=== PATIENT | female | born 1950 | race African-American/Black ===

== ENCOUNTER 2024-05-31 20:24 | Inpatient (IN) | payer BC, MEDICARE ==
[~2024-05-31] VITALS: Ht 170.2 cm; Wt 90.7 kg
[~2024-05-31 20:24] MED LIST: AMLO10TA80 PO; AMLO5TAB4 PO; HYDR25TA78 PO; LOSA-415 PO; TOPUD PO; WALK1EAC55 MC
[2024-05-31 21:55] LABS: HEMATOCRIT. 47.1 % (36.0-48.0); HEMOGLOBIN. 16.1 g/dL (12.0-16.0); MEAN CORPUSCULAR HEMOGLOBIN 32.8 pg (28.0-32.0); MEAN CORPUSCULAR HGB CONC 34.2 g/dL (31.0-37.0); MEAN CORPUSCULAR VOLUME 95.9 fL (81.0-99.0); MEAN PLATELET VOLUME 9.7 fl (7.4-10.4); PLATELET 86 x1000/uL (130-400); RED BLOOD CELL COUNT 4.91 mill/uL (4.2-5.4); WHITE BLOOD COUNT 10.4 x1000/uL (4.5-11.0)
[2024-05-31 21:56] LABS: DIFFERENTIAL COMMENT 1
[2024-05-31 22:00] LABS: CHLORIDE 108 mEq/L (98-107); SODIUM 140 mEq/L (136-145)
[2024-05-31 22:01] LABS: CALCIUM 8.9 mg/dL (8.7-10.4); CARBON DIOXIDE 24 mEq/L (21-32)
[2024-05-31 22:06] LABS: CREATININE 0.9 mg/dL (0.6-1.0); GLUCOSE 220 mg/dL (70-105); UREA NITROGEN BLOOD 9 mg/dL (9-23)
[2024-05-31 22:18] LABS: PLATELET ESTIMATE DECREASED
[2024-05-31 22:48] LABS: LACTIC ACID 3.6 mmol/L (0.4-2.0)
[2024-05-31 23:40] LABS: CLARITY URINE CLOUDY (CLEAR); COLOR URINE DARK YELLOW (YELLOW); GLUCOSE URINE TRACE (NEGATIVE); KETONES URINE TRACE (NEGATIVE); LEUKOCYTE ESTERASE URINE TRACE (NEGATIVE); NITRITE URINE POSITIVE (NEGATIVE); OCCULT BLOOD URINE NEGATIVE (NEGATIVE); PROTEIN URINE 1+ (NEGATIVE); SPECIFIC GRAVITY URINE 1.026 (1.005-1.030); UROBILINOGEN URINE >8.0 E.U./dL (0.2-1.0)
[2024-05-31] MEDS ORDERED: CEPH500C2 MT (23:46)
[2024-06-01] MEDS: CEFTRIAXONE 1GM/50ML 50 ML IV ONE (00:45)
[2024-06-01 05:09] LABS: SQUAMOUS EPITHELIAL CELL URINE 2+ /lpf (RARE/1+)
[2024-06-01 05:11] LABS: RBC URINE 0-2 /hpf (0-2); WBC URINE 0-2 /hpf (0-2)
[2024-06-01 05:12] LABS: BACTERIA URINE 1+
[2024-06-01] MEDS: LACTATED RINGERS 1,000 ML IV SCH (08:30)
[2024-06-01] MEDS ORDERED: GUAIFENESIN 200MG/10ML SUGAR FREE UDC PO PRN (08:45)
[2024-06-01] MEDS ORDERED: DOCUSATE SODIUM 100MG CAPSULE PO PRN (08:45)
[2024-06-01] MEDS ORDERED: NITROGLYCERIN 0.4MG TABLET SL SL PRN (08:45)
[2024-06-01] MEDS ORDERED: MAGNESIUM/ALUMINUM HYDROXIDE/SIMETHICONE 30ML UDC PO PRN (08:45)
[2024-06-01] MEDS ORDERED: KETOROLAC 15MG/ML VIAL IV PRN (08:45)
[2024-06-01] MEDS ORDERED: ACETAMINOPHEN 325MG TABLET PO PRN (08:45)
[2024-06-01] MEDS ORDERED: ZOLPIDEM TARTRATE 5MG TABLET PO PRN (08:45)
[2024-06-01] MEDS ORDERED: ONDANSETRON HCL 4MG/2ML INJ IV PRN (08:45)
[2024-06-01] MEDS: SODIUM CHLORIDE 0.9% 1000ML BAG (SEPSIS BOLUS) IV ONE (09:09)
[2024-06-01] MEDS: ASPIRIN 81MG EC TABLET PO SCH (09:23)
[2024-06-01] MEDS: FAMOTIDINE 20MG TABLET PO SCH (09:23)
[2024-06-01] MEDS: ASCORBIC ACID 500 MG TABLET PO SCH (09:24)
[2024-06-01] MEDS: ENOXAPARIN 40MG/0.4ML SYR SUBCUT SCH (09:24)
[2024-06-01] MEDS: ZINC SULFATE 220 MG ( 50 ) CAPSULE PO SCH (09:24)
[2024-06-01] MEDS: PIPERACILLIN/TAZO 3.375G/50ML 50 ML IV SCH (10:00)
[2024-06-01] MEDS: VANCOMYCIN 1.25GM PMX (XELLIA) 250 ML IV SCH (10:31)
[2024-06-01 13:01] LABS: IRON 36 ug/dL (50-170); TRIGLYCERIDE 83 mg/dL (0-150)
[2024-06-01 13:02] LABS: LDL CHOLESTEROL 72 mg/dL (5-100)
[2024-06-01 13:04] LABS: CHOLESTEROL 132 mg/dL (<200); HDL CHOLESTEROL 33 mg/dL (>65); TOTAL IRON BINDING CAPACITY 206 ug/dl (250-425)
[2024-06-01 13:06] LABS: THYROID STIMULATING HORMONE 0.51 uIU/mL (0.55-4.78)
[2024-06-01 13:07] LABS: T4 FREE 1.11 ng/dL (0.89-1.76)
[2024-06-01 14:32] LABS: FOLIC ACID (FOLATE) SERUM 9.88 ng/mL (>5.38); VITAMIN B12 SERUM 567 pg/mL (211-911)
[2024-06-01 15:06] VITALS: BP 124/98; PULSE 71; RESP 17; TEMP 36.72516; O2SAT 98
[2024-06-01 15:26] VITALS: BP 124/98; PULSE 71; RESP 17; TEMP 36.7516
[2024-06-01 16:21] LABS: CREATINE KINASE MB FRACTION 2.3 ng/mL (0.5-3.6)
[2024-06-01 16:22] LABS: TROPONIN I HIGH SENSITIVITY 9 ng/L (3.0-34)
[2024-06-01 16:23] LABS: CREATINE KINASE 99 IU/L (34-145)
[2024-06-01 17:07] LABS: HEPATITIS B SURFACE ANTIGEN NEGATIVE (Negative)
[2024-06-01 17:28] LABS: HEPATITIS C AB REACTIVE (Pos) (Negative)
[2024-06-01 20:00] VITALS: BP 168/72; PULSE 100; RESP 16; TEMP 36.83628; O2SAT 96
[2024-06-01] MEDS: CLONIDINE 0.1MG TABLET PO PRN (22:24)
[2024-06-02] VITALS: BP 112/49; PULSE 69; RESP 15; TEMP 36.78072; O2SAT 97
[2024-06-02 00:10] LABS: CREATINE KINASE MB FRACTION 1.8 ng/mL (0.5-3.6)
[2024-06-02 04:00] VITALS: BP 135/71; PULSE 88; RESP 12; TEMP 36.6696; O2SAT 97
[2024-06-02 06:52] LABS: EOSINOPHILS % 2.5 % (0.0-5.0); HEMATOCRIT. 39.3 % (36.0-48.0); LYMPHOCYTES % 27.5 % (20.0-50.0); MEAN CORPUSCULAR VOLUME 96.8 fL (81.0-99.0); MEAN PLATELET VOLUME 10.3 fl (7.4-10.4); MONOCYTES % 5.9 % (2.0-8.0); NEUTROPHILS % 63.1 % (40.0-76.0); PLATELET 67 x1000/uL (130-400); RED BLOOD CELL COUNT 4.06 mill/uL (4.2-5.4); RED CELL DISTRIBUTION WIDTH 13.7 % (11.6-14.6); WHITE BLOOD COUNT 6.7 x1000/uL (4.5-11.0)
[2024-06-02 06:59] LABS: CHLORIDE 113 mEq/L (98-107); SODIUM 142 mEq/L (136-145)
[2024-06-02 07:02] LABS: CALCIUM 8.5 mg/dL (8.7-10.4); CARBON DIOXIDE 25 mEq/L (21-32)
[2024-06-02 07:07] LABS: CREATININE 0.8 mg/dL (0.6-1.0); GLUCOSE 155 mg/dL (70-105)
[2024-06-02 07:08] LABS: ALANINE AMINOTRANSFERASE 96 IU/L (10-49); UREA NITROGEN BLOOD 16 mg/dL (9-23)
[2024-06-02 07:09] LABS: ALBUMIN 2.8 g/dL (3.2-4.8); ASPARTATE AMINOTRANSFERASE 70 IU/L (<34)
[2024-06-02 07:10] LABS: BILIRUBIN TOTAL 2.2 mg/dL (0.1-1.0); PHOSPHORUS 2.4 mg/dL (2.5-4.9); PROTEIN TOTAL 5.8 g/dL (6.0-8.3)
[2024-06-02 08:00] VITALS: BP 133/64; PULSE 57; RESP 14; TEMP 36.83628; O2SAT 98
[2024-06-02 12:00] VITALS: BP 141/67; PULSE 46; RESP 16; TEMP 36.6696; O2SAT 98
[2024-06-02 16:00] VITALS: BP 138/55; PULSE 53; RESP 20; TEMP 36.6696; O2SAT 99
[2024-06-02 20:00] VITALS: BP 157/91; PULSE 51; RESP 18; TEMP 36.78072; O2SAT 98
[2024-06-03] VITALS (7 sets, daily range): BP systolic 136–173; BP diastolic 60–94; PULSE 42–72; RESP 15–20; TEMP 36.50292–36.78072; O2SAT 97–99
[2024-06-03 11:12] LABS: LACTIC ACID 2.4 mmol/L (0.4-2.0)
[2024-06-03 11:13] LABS: DIFFERENTIAL COMMENT 0; EOSINOPHILS % 4.9 % (0.0-5.0); HEMATOCRIT. 39.9 % (36.0-48.0); LYMPHOCYTES % 39.2 % (20.0-50.0); MEAN CORPUSCULAR HEMOGLOBIN 31.8 pg (28.0-32.0); MEAN CORPUSCULAR HGB CONC 32.5 g/dL (31.0-37.0); MEAN CORPUSCULAR VOLUME 97.8 fL (81.0-99.0); MEAN PLATELET VOLUME 10.4 fl (7.4-10.4); MONOCYTES % 9.3 % (2.0-8.0); NEUTROPHILS % 45.6 % (40.0-76.0); PLATELET 78 x1000/uL (130-400); RED BLOOD CELL COUNT 4.08 mill/uL (4.2-5.4); RED CELL DISTRIBUTION WIDTH 13.9 % (11.6-14.6); WHITE BLOOD COUNT 3.2 x1000/uL (4.5-11.0)
[2024-06-03 11:49] LABS: CHLORIDE 110 mEq/L (98-107); SODIUM 140 mEq/L (136-145)
[2024-06-03 11:50] LABS: CALCIUM 8.4 mg/dL (8.7-10.4); CARBON DIOXIDE 24 mEq/L (21-32)
[2024-06-03 11:55] LABS: CREATININE 0.7 mg/dL (0.6-1.0); GLUCOSE 232 mg/dL (70-105)
[2024-06-03 11:56] LABS: UREA NITROGEN BLOOD 9 mg/dL (9-23)
[2024-06-03 11:57] LABS: ALANINE AMINOTRANSFERASE 124 IU/L (10-49); ALBUMIN 2.9 g/dL (3.2-4.8); ASPARTATE AMINOTRANSFERASE 127 IU/L (<34); PHOSPHORUS 2.4 mg/dL (2.5-4.9)
[2024-06-03 11:58] LABS: BILIRUBIN TOTAL 1.7 mg/dL (0.1-1.0); PROTEIN TOTAL 6.3 g/dL (6.0-8.3)
[2024-06-03] MEDS: ACETAMINOPHEN 325MG TABLET PO PRN (14:30)
[2024-06-03] MEDS: MAGNESIUM 2 G PREMIX 50 ML IV NR (14:31)
[2024-06-03] MEDS: SODIUM PHOSPHATE 10 MMOL in DEXT 5% WATER 246.6667 ML IV NR (15:43)
[2024-06-03] MEDS: VANCOMYCIN 750MG PMX (XELLIA) 150 ML IV SCH (20:30)
[2024-06-03] MEDS: IPRATROPIUM/ALBUTEROL 0.5-3(2.5)MG/3ML NEB NEB PRN (23:50)
[2024-06-04] VITALS (7 sets, daily range): BP systolic 113–170; BP diastolic 50–128; PULSE 49–70; RESP 14–18; TEMP 36.50292–36.89184; O2SAT 96–98
[2024-06-04] MEDS: ENOXAPARIN 30MG/0.3ML SYR SUBCUT SCH (05:15)
[2024-06-04] MEDS: VANCOMYCIN 750 MG in DEXT 5% WATER 100 ML IV SCH (20:49)
[2024-06-05] VITALS: BP 155/85; PULSE 88; RESP 18; TEMP 36.114
[2024-06-05 04:00] VITALS: BP 160/86; PULSE 69; RESP 26; TEMP 36.6696; O2SAT 99
[2024-06-05 08:00] VITALS: BP 139/75; PULSE 48; RESP 16; TEMP 36.6696; O2SAT 100
[2024-06-05] MEDS ORDERED: AMOX1TAB16 MT (08:50)
[2024-06-05] MEDS ORDERED: AMLO10TA4 MT (08:50)
[2024-06-05 09:32] LABS: CHLORIDE 109 mEq/L (98-107); SODIUM 139 mEq/L (136-145)
[2024-06-05 09:33] LABS: CARBON DIOXIDE 25 mEq/L (21-32)
[2024-06-05 09:34] LABS: CALCIUM 8.9 mg/dL (8.7-10.4)
[2024-06-05 09:38] LABS: CREATININE 0.6 mg/dL (0.6-1.0); GLUCOSE 152 mg/dL (70-105)
[2024-06-05 10:03] LABS: UREA NITROGEN BLOOD < 5 mg/dL (9-23)
[2024-06-05 10:55] VITALS: BP 139/75; PULSE 50; TEMP 98; O2SAT 100
[2024-06-05 12:00] VITALS: BP 173/73; PULSE 48; RESP 20; TEMP 36.3918; TEMP 36.39180; O2SAT 96
[2024-06-05] MEDS: AMLODIPINE 10MG TABLET PO SCH (13:35)
[2024-06-05 14:39] VITALS: BP 152/79
[2024-06-05] MEDS ORDERED: VANCOMYCIN 1GM PMX (XELLIA) 200 ML IV SCH (21:00)
== END 2024-06-05 14:55 | disposition home health service (06) | DRG 872 ==
LOC: ER 20:24 → 5WST 06-01 01:24 → 3WST 06-01 14:57
PROVIDERS: ADMIT Internal Medicine; ATTEND Internal Medicine
DX: A41.9 Sepsis, unspecified organism (principal); N39.0 Urinary tract infection, site not specified; R65.20 Severe sepsis without septic shock; I10 Essential (primary) hypertension; R73.03 Prediabetes; Z88.2 Allergy status to sulfonamides; Z91.018 Allergy to other foods
CPT/HCPCS: 36415; 71045; 80048; 80053; 80061; 80202; 81003; 82550; 82553; 82607; 82746; 83036; 83540; 83550; 83605; 83735; 83880; 84100; 84145; 84439; 84443; 84484; 85025; 85379; 86705; 87340; 93005; 93306; 93970; 94640; 97162; 97166; 99285; J0696; J1650; J2543; J3370; J3475; J3490; J7060; J7120